=== PATIENT | female | born 1970 | race Hispanic/Latino ===

== ENCOUNTER 2022-01-21 12:10 | Observation (INO) | payer OTHER ==
[~2022-01-21] VITALS: Ht 152.4 cm; Wt 70.3 kg
[2022-01-21 12:29] LABS: BASOPHILS % (AUTO) 0.5 % (0.0-5.0); EOSINOPHILS % (AUTO) 0.9 % (0.0-8.0); HEMATOCRIT 43.9 % (36-48); LYMPHOCYTES % (AUTO) 14.4 % (21.0-51.0); MEAN CORPUSCULAR HEMOGLOBIN 25.7 pg (27.0-33.0); MEAN CORPUSCULAR HGB CONC 33.3 g/dL (32.0-36.0); MEAN CORPUSCULAR VOLUME 77.2 fL (79-99); MONOCYTES % (AUTO) 7.2 % (3.0-13.0); NEUTROPHILS % (AUTO) 76.6 % (40.0-77.0); PLATELET COUNT (AUTO) 311 K/uL (130-400); RED BLOOD CELL COUNT(AUTO) 5.69 MIL/uL (4.00-5.50); RED CELL DISTRIBUTION WIDTH 14.7 % (11.0-15.5); WHITE BLOOD COUNT (AUTO) 11.6 K/uL (4.8-10.8)
[2022-01-21 12:47] LABS: ALBUMIN 3.3 g/dL (3.5-5.0); CREATININE 0.7 mg/dL (0.5-1.5); POTASSIUM 3.7 mmol/L (3.5-5.1); TOTAL PROTEIN, SERUM 7.2 g/dL (6.0-8.3)
[2022-01-21] MEDS ORDERED: HYDRALAZINE 20MG/ML VIAL IV ONE (13:00)
[2022-01-21] MEDS ORDERED: IOHEXOL 350 MG/ML 100ML INFUS..BTL IV ONE (14:20)
[2022-01-21] MEDS ORDERED: ONDANSETRON 4MG INJ IV PRN (15:00)
[2022-01-21] MEDS ORDERED: ACETAMINOPHEN 325 MG TAB PO PRN (15:00)
[2022-01-21] MEDS ORDERED: DOCUSATE SODIUM 100 MG CAP PO PRN (15:00)
[2022-01-21] MEDS ORDERED: DEXTROSE 50%-WATER 50 ML DISP.SYRIN IV PRN (15:00)
[2022-01-21] MEDS ORDERED: LABETALOL 20MG VIAL IV PRN (15:00)
[2022-01-21] MEDS ORDERED: LACTULOSE 20 GM/30 ML UDCUP PO PRN (15:00)
[2022-01-21] MEDS ORDERED: GUAIFENESIN-DM 200/20 MG 10 ML PO PRN (15:00)
[2022-01-21] MEDS ORDERED: DIPHENHYDRAMINE HCL 25 MG CAPSULE PO PRN (15:00)
[2022-01-21] MEDS ORDERED: GLUCAGON 1MG KIT 1 MG ML IM PRN (15:00)
[2022-01-21] MEDS ORDERED: 0.9%NACL 1000ML 1,000 ML IV SCH (15:00)
[2022-01-21] MEDS ORDERED: HYDRALAZINE 20MG/ML VIAL IV PRN (15:00)
[2022-01-21] MEDS ORDERED: NITROGLYCERIN 0.4 MG SL TAB SL PRN (15:00)
[2022-01-21 15:33] LABS: HEMOGLOBIN A1C 13.5 % (4.0-6.0)
[2022-01-21 17:03] LABS: AMPHET/METH SCREEN,URINE NEGATIVE (NEGATIVE); BARBITURATE SCREEN, URINE NEGATIVE (NEGATIVE); BENZODIAZEPINES SCREEN,URINE NEGATIVE (NEGATIVE); CANNABINOID SCREEN,URINE NEGATIVE (NEGATIVE); COCAINE SCREEN,URINE NEGATIVE (NEGATIVE); PHENCYCLIDINE SCREEN,URINE NEGATIVE (NEGATIVE)
[2022-01-21] MEDS: INSULIN HUMULIN R 100 UNIT/ML 3ML SQ SCH (17:57)
[2022-01-21] MEDS: ACETAMINOPHEN 500 MG TABLET PO PRN (18:08)
[2022-01-21] MEDS: FAMOTIDINE 20MG VIAL IV SCH (20:10)
[2022-01-22 00:05] VITALS: BP 151/89
[2022-01-22 03:06] VITALS: BP 152/93
[2022-01-22 05:10] LABS: CHOLESTEROL 196 mg/dL (<200); HDL CHOLESTEROL 60 mg/dL (35-85); LDL DIRECT 105 mg/dL (0-99); TRIGLYCERIDES 152 mg/dL (30-200)
[2022-01-22] MEDS: INSULIN HUMULIN R 100 UNIT/ML 3ML SQ SCH ×3 (05:29→11:41)
[2022-01-22] MEDS: ACETAMINOPHEN 500 MG TABLET PO PRN (05:30)
[2022-01-22 06:33] LABS: HEMATOCRIT 42.3 % (36-48); MEAN CORPUSCULAR HEMOGLOBIN 26.1 pg (27.0-33.0); MEAN CORPUSCULAR HGB CONC 33.1 g/dL (32.0-36.0); MEAN CORPUSCULAR VOLUME 78.8 fL (79-99); PLATELET COUNT (AUTO) 329 K/uL (130-400); RED BLOOD CELL COUNT(AUTO) 5.37 MIL/uL (4.00-5.50); RED CELL DISTRIBUTION WIDTH 15.4 % (11.0-15.5); WHITE BLOOD COUNT (AUTO) 11.1 K/uL (4.8-10.8)
[2022-01-22 07:00] VITALS: BP 176/97
[2022-01-22 07:03] LABS: LYMPHOCYTES % (MANUAL) 27 % (22-44); MAN.DIFF COMMENT-IMPRESSION MANUAL DIFFERENTIAL; MONOCYTES % (MANUAL) 7 % (2-9); SEGMENTED NEUTROPHILS % 66 % (40-70)
[2022-01-22 07:04] LABS: PLATELET MORPHOLOGY COMMENT ADEQUATE
[2022-01-22 07:06] LABS: ALBUMIN 3.2 g/dL (3.5-5.0); CREATININE 0.9 mg/dL (0.5-1.5); POTASSIUM 3.1 mmol/L (3.5-5.1); THYROID STIMULATING HORMONE 0.44 uIU/mL (0.36-3.74); TOTAL PROTEIN, SERUM 6.9 g/dL (6.0-8.3)
[2022-01-22] MEDS: FAMOTIDINE 20MG VIAL IV SCH (08:55)
[2022-01-22] MEDS ORDERED: ASPIRIN 81MG CHEW TAB PO SCH (09:00)
[2022-01-22] MEDS ORDERED: FLUOXETINE HCL 20 MG CAPSULE PO SCH (09:00)
[2022-01-22] MEDS ORDERED: CLOPIDOGREL 75MG TAB PO SCH (09:00)
[2022-01-22] MEDS ORDERED: ATORVASTATIN 40 MG TABLET PO SCH (09:00)
[2022-01-22] MEDS ORDERED: LISINOPRIL 40 MG TABLET PO SCH (09:00)
[2022-01-22 11:00] VITALS: BP 154/95
[2022-01-22] MEDS ORDERED: KCL 20 MEQ ERTAB PO STA (14:24)
[2022-01-22] MEDS ORDERED: LISI40TA9 PO (15:53)
[2022-01-22] MEDS ORDERED: CLOP75TA14 PO (15:53)
[2022-01-22] MEDS ORDERED: ASPI-1005 PO (15:53)
[2022-01-22] MEDS ORDERED: FLUO20CA36 PO (15:53)
[2022-01-22] MEDS ORDERED: ATOR40TA69 PO (15:53)
[2022-01-22] MEDS ORDERED: PIOG30TA70 PO (15:53)
[2022-01-22] MEDS ORDERED: METF-446 PO (15:53)
[2022-01-22] MEDS ORDERED: INSULIN HUMULIN R 100 UNIT/ML 3ML SQ SCH (21:00)
[2022-01-25 08:13] LABS: OPIATES SCREEN URINE Negative ng/mL (Cutoff=300)
== END 2022-01-22 18:35 | disposition home or self-care (01) ==
LOC: EDH 12:10 → INTOOBSV 12:11 → EDHIP 12:11 → 2DH 23:31
PROVIDERS: ADMIT Internal Medicine; ATTEND Internal Medicine
DX: G45.9 Transient cerebral ischemic attack, unspecified (principal); I16.1 Hypertensive emergency; R07.89 Other chest pain; I10 Essential (primary) hypertension; E11.65 Type 2 diabetes mellitus with hyperglycemia; E78.00 Pure hypercholesterolemia, unspecified; E78.5 Hyperlipidemia, unspecified; R47.01 Aphasia; Z91.19 Patient's noncompliance with other medical treatment and regimen; Z98.891 History of uterine scar from previous surgery; Z79.899 Other long term (current) drug therapy; Z98.890 Other specified postprocedural states
CPT/HCPCS: 96374; 96372 ×2; 96375; 99285; 83036; 84484; 80053 ×2; 80305; 85025 ×2; 82948 ×5; 81025; 36415 ×2; 71045; 70450; 70496; 70498; 93306; 93356; 70551; 93005; 96376; 84443; 80061; 84439; 97161; 92522; 92610; 82570; J3490 ×2; J0360; J2405; J1815 ×2; Q9967; G0378 ×6